=== PATIENT | male | born 1955 | race Caucasian/White ===

== ENCOUNTER 2021-01-07 22:06 | Inpatient (IN) ==
[2021-01-07] MEDS ORDERED: ADENOSINE IV SOLN 3 MG/ML 2 ML VIAL IV ONE (22:22)
[2021-01-07] MEDS ORDERED: METOPROLOL TARTRATE 1 MG/ML VIAL IV ONE (22:26)
[2021-01-07] MEDS ORDERED: SODIUM CHLORIDE 0.9% 1000ML 1,000 ML IV ONE (22:27)
[2021-01-07 22:37] LABS: Basophils # (auto) 0.09 K/uL (0-0.2); Basophils % (auto) 0.5 %; Eosinophils # (auto) 0.26 K/uL (0-0.5); Eosinophils % (auto) 1.4 %; Hematocrit (blood only) 41.4 % (42-52); Hemoglobin 14.7 g/dL (14.0-18.0); Immature Granulocytes # (auto) 0.05 K/uL (0.00-0.02); Immature Granulocytes % (auto) 0.3 %; Lymphocytes # (auto) 4.73 K/uL (1.2-3.4); Lymphocytes % (auto) 24.9 %; Mean Corpuscular Hemoglobin 30.4 pg (25-34); Mean Corpuscular Hgb Conc 35.5 g/dL (32-36); Mean Corpuscular Volume 85.7 fL (80-100); Mean Platelet Volume 9.2 fL (7.4-10.4); Monocytes # (auto) 1.56 K/uL (0.11-0.59); Monocytes % (auto) 8.2 %; Neutrophils # (auto) 12.28 K/uL (1.4-6.5); Neutrophils % (auto) 64.7 %; Platelet Count 515 K/uL (130-400); RDW Coefficient of Variation 12.9 % (11.5-14.5); RDW Standard Deviation 40.8 fL (36.4-46.3); Red Blood Count 4.83 M/uL (4.7-6.1); White Blood Count 18.97 K/uL (4.8-10.8)
--- NOTE | 2021-01-07 22:37 | Emergency Department Note ---
Impression & Plan SOB (shortness of breath), SVT (supraventricular tachycardia), Weakness, Pneumonia, Leukocytosis ED Provider Note NAME: MAME WESTON AGE: 65 SEX: M : 1955 ARRIVES VIA: Walk-In INFORMANT: [Patient] ED PROVIDER(S): [Christian Padilla MD] CHIEF COMPLAINT: Short of breath HISTORY OF PRESENT ILLNESS: The patient is a 65-year-old male presents with about a week and a half of symptoms. He has had an intermittent low-grade fever, some cough, some shortness of breath with exertion. He has had a tightness across his chest. He has not had chest pain. No stuffy nose. No vomiting or diarrhea. The patient has felt quite washed out, especially today. He presents for evaluation. The patient is vaccinated against COVID-19. He had a recent Covid test which turned up negative. REVIEW OF SYSTEMS: See HPI for pertinent positives and negatives. A total of ten systems were reviewed and were otherwise negative. PMHx/PSHx: See Below SOCIAL HISTORY: See Below. PHYSICAL EXAM: GENERAL: Patient is in mild distress. HEENT: No acute trauma, normocephalic atraumatic, mucous membranes moist, no nasal congestion, no scleral icterus. NECK: No stridor, no adenopathy, no meningismus, trachea is midline. LUNGS: Clear to auscultation bilaterally, no wheeze, no rhonchi, breath sounds equal. HEART: Tachycardic, regular rhythm, no murmurs. ABDOMEN: Soft, nontender, bowel sounds positive, no hernias, no peritonitis. EXTREMITIES: No cyanosis or edema, full range of motion of all the joints without pain or difficulty, no signs for acute trauma. NEUROLOGIC: Oriented x 3, no acute motor or sensory deficits, no focal weakness. SKIN: No rash, no jaundice, no diaphoresis. DIFFERENTIAL DIAGNOSIS: Reactive airway disease, pneumonia, pneumothorax, COPD, COVID-19, dysrhythmia, SVT, atrial fibrillation, atrial flutter, anemia, hyperthyroidism, CHF, infection, cardiac ischemia, pulmonary embolism, bronchitis, musculoskeletal, gastrointestinal, as well as other pathologies. EMERGENCY DEPARTMENT COURSE/PROCEDURES: ECG: Indication was tachycardia. The ECG shows what appears to be in SVT with a rate of 218. There is diffuse nonspecific ST change. No ST elevation. No PVCs. The QTc is 388. Repeat EKG: There is a sinus tachycardia with a rate of 116. There is no ST paola vation, no PVCs. The QTc is 444. Compared to the earlier ECG, the SVT is no longer present. Continuous Cardiac Monitoring: An order was placed for continuous cardiac monitoring. The monitor shows a rate of 115 with sinus tachycardia. Critical Care Note: I have personally spent 53 minutes of critical care time in the direct management of this patient. This includes bedside care, interpretation of diagnostic studies, and testing, discussion with consultants, patient, and family members, and other required patient management activities. This 53 minutes is in excess of all separately billable procedures. MEDICAL DECISION MAKING: There is a moderate leukocytosis at 18,000, this would be consistent with infect ion. There is a normal hemoglobin. Platelet count mildly elevated. Potassium somewhat low at 3.3. No kidney failure. Lactic acid level was elevated at over 2, this is consistent with infection and/or dehydration. No concerning liver enzyme elevation. The patient appeared to be in a euthyroid state. ECG showed SVT, no acute ischemic change. Repeat EKG showed a sinus tachycardia. Cardiac enzyme testing x1 is not consistent with acute cardiac injury. Covid test returned negative. Chest film showed some cardiomegaly, I did not see any CHF or pneumonia. Chest CT showed a left-sided pneumonia, there was no PE. The patient presented quite tachycardic. He was aggressively managed. I did attempt some vagal maneuvers. The patient was placed in the head down position. He attempted to blow into a straw. He held his breath and tried to force a cough. These maneuvers did not change his tachycardia. Patient received IV adenosine, 6 mg followed by a rapid flush of saline. This did break the SVT into a sinus tachycardia. The patient did well with this medication. Patient received IV saline, 1.5 L. He was given IV potassium and IV Lopressor. He received IV cefepime as antibiotic coverage. Patient presents with shortness of breath, weakness, cough. He appears to have pneumonia on work-up. He has a leukocytosis. He was in SVT upon his arrival. His lactic acid level is elevated, sepsis is a concern. The patient is in need of a hospital stay. Further testing/care is warranted. I spoke with the patient and case management. The on-call hospitalist was consulted. Past Med/Surg History Medical History GERD (gastroesophageal reflux disease) Social History Smoking Status: Never smoker Feels Safe at Home: Yes Allergies Allergies Allergy/AdvReac Type Severity Reaction Status Date / Time No Known Allergies Unverified 01/08/21 00:37 Home Meds Home Medications Medication Instructions Recorded Confirmed Statin Pill 1 tab PO DAILY 01/08/21 01/08/21 cyanocobalamin (vitamin B-12) 0 mcg PO DAILY 01/08/21 01/08/21 1,000 mcg tablet (Vitamin B-12) omeprazole 20 mg capsule,delayed 20 mg PO BID 01/08/21 01/08/21 release Results & Data (ED) Vital Signs Vital Signs - 24 hr 01/07/21 22:08 01/07/21 22:21 01/07/21 22:29 Temperature 36.1 C L Temperature Source Temporal Artery Scan Pulse Rate 218 H 211 H 115 H Pulse Rate from SpO2 Sensor Respiratory Rate 22 28 H Respiratory Effort / Characteristics Non-Labored Spontaneous Respiratory Depth Normal Respiratory Pattern Regular Blood Pressure 130/85 147/92 H Blood Pressure Mean 100 Pulse Oximetry 95 Oxygen Delivery Method Room Air Sepsis Recent Fever Within 48 Hours No Sepsis New/Unexplained Change in Mental Status No Sepsis Action Taken by Nursing No Action Required 01/07/21 22:30 01/07/21 22:37 01/07/21 22:45 Temperature Temperature Source Pulse Rate 113 H 108 H 107 H Pulse Rate from SpO2 Sensor 113 H Respiratory Rate 23 19 20 Respiratory Effort / Characteristics Respiratory Depth Respiratory Pattern Blood Pressure 125/84 128/77 Blood Pressure Mean 97 94 Pulse Oximetry 94 93 94 Oxygen Delivery Method Room Air Room Air Room Air Sepsis Recent Fever Within 48 Hours Sepsis New/Unexplained Change in Mental Status Sepsis Action Taken by Nursing 01/07/21 23:00 01/08/21 00:00 01/08/21 00:30 Temperature Temperature Source Pulse Rate 107 H 101 H 100 H Pulse Rate from SpO2 Sensor Respiratory Rate 22 16 14 Respiratory Effort / Characteristics Respiratory Depth Respiratory Pattern Blood Pressure 126/75 133/86 128/83 Blood Pressure Mean 92 101 98 Pulse Oximetry 93 94 100 Oxygen Delivery Method Room Air Sepsis Recent Fever Within 48 Hours Sepsis New/Unexplained Change in Mental Status Sepsis Action Taken by Skilled Nursing Medications Current Medication List: was personally reviewed by me Laboratory Data Attestation: I reviewed the patient's lab results. Result diagrams: 01/07/21 22:22 01/07/21 22:22 Lab Results 01/07/21 01/07/21 01/07/21 Range/Units 22:22 22:22 22:42 WBC 18.97 H (4.8-10.8) K/uL RBC 4.83 (4.7-6.1) M/uL Hgb 14.7 (14.0-18.0) g/dL Hct 41.4 L (42-52) % MCV 85.7 (80-100) fL MCH 30.4 (25-34) pg MCHC 35.5 (32-36) g/dL RDW Std Deviation 40.8 (36.4-46.3) fL RDW Coeff of Elizabeth 12.9 (11.5-14.5) % Plt Count 515 H (130-400) K/uL MPV 9.2 (7.4-10.4) fL Immature Gran % (Auto) 0.3 % Neut % (Auto) 64.7 % Lymph % (Auto) 24.9 % [place]pson % (Auto) 8.2 % Eos % (Auto) 1.4 % Baso % (Auto) 0.5 % Neut # (Auto) 12.28 H (1.4-6.5) K/uL Lymph # (Auto) 4.73 H (1.2-3.4) K/uL [place]pson # (Auto) 1.56 H (0.11-0.59) K/uL Eos # (Auto) 0.26 (0-0.5) K/uL Baso # (Auto) 0.09 (0-0.2) K/uL Immature Gran # (Auto) 0.05 H (0.00-0.02) K/uL Sodium 136 (136-145) mmol/L Potassium 3.3 L (3.5-5.1) mmol/L Chloride 98 (98-107) mmol/L Carbon Dioxide 27 (21-32) mmol/L Anion Gap 11.0 (3-11) BUN 16 (7-18) mg/dl Creatinine 1.34 (0.6-1.4) mg/dl Est Cr Clr Drug Dosing 66.4 ml/min Est GFR ( Amer) 64.0 ml/min Est GFR (Non-Af Amer) 55.2 ml/min BUN/Creatinine Ratio 11.6 (10-20) Glucose 112 H (70-99) mg/dl Lactate (0.4-2.0) mmol/L Calcium 9.4 (8.5-10.1) mg/dl Magnesium 2.2 (1.8-2.4) mg/dl Total Bilirubin 0.8 (0.2-1) mg/dl AST 30 (15-37) U/L ALT 41 (12-78) U/L Alkaline Phosphatase 140 H (45-117) U/L Troponin I < 0.015 (0-0.045) ng/ml Total Protein 8.5 H (6.4-8.2) gm/dl Albumin 3.3 L (3.4-5.0) gm/dl Globulin 5.2 H (2.5-4.0) gm/dl Albumin/Globulin Ratio 0.6 L (0.9-2) TSH 4.070 (0.300-4.500) uIu/ml COVID-19 Eval Order Covid19 at [facility] SARS-CoV-2 (PCR) (Negative) 01/07/21 01/07/21 Range/Units 22:42 22:59 WBC (4.8-10.8) K/uL RBC (4.7-6.1) M/uL Hgb (14.0-18.0) g/dL Hct (42-52) % MCV (80-100) fL MCH (25-34) pg MCHC (32-36) g/dL RDW Std Deviation (36.4-46.3) fL RDW Coeff of Elizabeth (11.5-14.5) % Plt Count (130-400) K/uL MPV (7.4-10.4) fL Immature Gran % (Auto) % Neut % (Auto) % Lymph % (Auto) % [place] % (Auto) % Eos % (Auto) % Baso % (Auto) % Neut # (Auto) (1.4-6.5) K/uL Lymph # (Auto) (1.2-3.4) K/uL [place]pson # (Auto) (0.11-0.59) K/uL Eos # (Auto) (0-0.5) K/uL Baso # (Auto) (0-0.2) K/uL Immature Gran # (Auto) (0.00-0.02) K/uL Sodium (136-145) mmol/L Potassium (3.5-5.1) mmol/L Chloride (98-107) mmol/L Carbon Dioxide (21-32) mmol/L Anion Gap (3-11) BUN (7-18) mg/dl Creatinine (0.6-1.4) mg/dl Est Cr Clr Drug Dosing ml/min Est GFR ( Amer) ml/min Est GFR (Non-Af Amer) ml/min BUN/Creatinine Ratio (10-20) Glucose (70-99) mg/dl Lactate 2.1 H* (0.4-2.0) mmol/L Calcium (8.5-10.1) mg/dl Magnesium (1.8-2.4) mg/dl Total Bilirubin (0.2-1) mg/dl AST (15-37) U/L ALT (12-78) U/L Alkaline Phosphatase (45-117) U/L Troponin I (0-0.045) ng/ml Total Protein (6.4-8.2) gm/dl Albumin (3.4-5.0) gm/dl Globulin (2.5-4.0) gm/dl Albumin/Globulin Ratio (0.9-2) TSH (0.300-4.500) uIu/ml COVID-19 Eval Order SARS-CoV-2 (PCR) NEGATIVE (Negative) Administered Medications Potassium Chloride (K Ross / Wtr) 10 meq in 100 mls @ 100 mls/hr IV Q1H ORTEGA Stop: 01/08/21 02:44 Last Admin: 01/08/21 00:49 Dose: 100 mls/hr Documented by: [id number] Discontinued Medications Adenosine (Adenosine Iv Soln 3 Mg/Ml 2 Ml Vial) Confirm Administered Dose 18 mg IV .STK-MED ONE Stop: 01/07/21 22:23 Last Admin: 01/07/21 22:24 Dose: 6 mg Documented by: [id number] Sodium Chloride (Nss 1000ml) 1,000 mls @ 999 mls/hr IV .Q1H1M ONE Stop: 01/07/21 23:27 Last Infusion: 01/07/21 22:45 Dose: 0 mls/hr Documented by: [id number] Admin: 01/07/21 22:33 Dose: 999 mls/hr Documented by: [id number] Potassium Chloride (K Ross / Wtr) 10 meq in 100 mls @ 100 mls/hr IV ONE ONE Stop: 01/08/21 00:09 Last Infusion: 01/08/21 00:34 Dose: 0 mls/hr Documented by: [id number] Admin: 01/07/21 23:34 Dose: 100 mls/hr Documented by: [id number] Sodium Chloride (Nss 1000ml) 500 mls @ 999 mls/hr IV .Q31M ONE Stop: 01/08/21 00:08 Last Infusion: 01/08/21 00:25 Dose: 0 mls/hr Documented by: [id number] Admin: 01/07/21 23:54 Dose: 999 mls/hr Documented by: [id number] Cefepime HCl (Maxipime) 2,000 mg in 20 mls @ 5 mls/min IV NOW STA; Protocol Stop: 01/07/21 23:42 Last Admin: 01/07/21 23:54 Dose: 5 mls/min Documented by: [id number] Ioversol (Optiray 320 125ml) 120 ml IV ONCE ONE Stop: 01/07/21 23:31 Last Admin: 01/07/21 23:27 Dose: 120 ml Documented by: [id number] Metoprolol Tartrate (Metoprolol Tartrate 1 Mg/Ml Vial) Confirm Administered Dose 5 mg IV .STK-MED ONE Stop: 01/07/21 22:27 Last Admin: 01/07/21 22:29 Dose: 5 mg Documented by: [id number] Imaging Data Attestation: I personally reviewed and interpreted this imaging study as follows : My Impression: Chest x-ray: There is no obvious pneumonia, no CHF. Some mild cardiomegaly was seen. Radiologist's Impression: Chest CT for PE: No acute pulmonary embolus. Normal heart size. No pericardial effusion. No aneurysm. Centrilobular nodules throughout the left lung suggesting infectious or inflammatory small airway disease. Small left lung base consolidation, possible pneumonia. No pleural effusion or pneumothorax. Cholelithiasis. Discharge Plan Visit Data Chief Complaint: Shortness of Breath/Dyspnea Stated Complaint: SOB, CHEST TIGHTNESS, CONGESTION ED Provider: Christian Padilla Discharge Problem: SOB (shortness of breath), SVT (supraventricular tachycardia), Weakness, Pneumonia, Leukocytosis Patient Disposition: Admitted As Inpatient Condition: Fair Prescriptions Prescriptions: No Action cyanocobalamin (vitamin B-12) [Vitamin B-12] 1,000 mcg Tablet 0 mcg PO DAILY RF: 0 omeprazole [Prilosec] 20 mg Capsule,Delayed Release(Dr/Ec) 20 mg PO BID RF: 0 Statin Pill 1 tab PO DAILY RF: 0
[2021-01-07 23:08] LABS: Alanine Aminotransferase 41 U/L (12-78); Albumin Level 3.3 gm/dl (3.4-5.0); Aspartate Aminotransferase 30 U/L (15-37); BUN Creatinine Ratio 11.6 (10-20); Blood Urea Nitrogen 16 mg/dl (7-18); Calcium 9.4 mg/dl (8.5-10.1); Carbon Dioxide 27 mmol/L (21-32); Chloride 98 mmol/L (98-107); Creatinine Clr Calc Pharmacy 66.4 ml/min; Est GFR (Non-African American) 55.2 ml/min; Glucose 112 mg/dl (70-99); Magnesium 2.2 mg/dl (1.8-2.4); Potassium 3.3 mmol/L (3.5-5.1); Sodium 136 mmol/L (136-145)
[2021-01-07] MEDS ORDERED: POTASSIUM CHLORIDE / WTR 10 MEQ/100 ML PLCT IV ONE (23:10)
[2021-01-07 23:19] LABS: Albumin Globulin Ratio 0.6 (0.9-2); Alkaline Phosphatase 140 U/L (45-117); Bilirubin,Total 0.8 mg/dl (0.2-1); Globulin 5.2 gm/dl (2.5-4.0); Total Protein 8.5 gm/dl (6.4-8.2); Troponin I < 0.015 ng/ml (0-0.045)
[2021-01-07] MEDS ORDERED: OPTIRAY 320 125ml IV ONE (23:30)
[2021-01-07] MEDS ORDERED: SODIUM CHLORIDE 0.9% 1000ML 500 ML IV ONE (23:38)
[2021-01-07] MEDS ORDERED: CEFEPIME 2,000 MG/20 ML VIAL IV STA (23:39)
--- NOTE | 2021-01-08 00:42 | History & Physical Report ---
Date of Service January 08, 2021 Assessment & Plan (1) SVT (supraventricular tachycardia): Plan: SVT- The patient will be admitted to telemetry for serial cardiac enzymes, serial EKG's, cardiac rhythm monitoring and a 2-D echocardiogram with Dopplers. Resolved with adenosine IV and Lopressor IV Optimize potassium of 3.3 with 10 mEq K riders x3 Optimize fluid status with NSS + KCl 20 mEq at 100 mils per hour Lopressor 5 mg IV every 4 hours as needed heart rate greater than 110 Consult cardiology Treat underlying pneumonia that likely created physiologic stress and helped act as a trigger (2) Pneumonia: Plan: Received cefepime 2 g IV from the ED Ceftriaxone 1 g IV daily Azithromycin 500 mg IV daily Methylprednisolone 20 mg IV every 8 hours Guaifenesin extended release 12 mg p.o. twice daily (3) GERD (gastroesophageal reflux disease): Plan: Continue omeprazole/pantoprazole twice daily (4) Hyperlipidemia: Plan: On unknown statin Place on atorvastatin 10 mg every morning (5) Weakness: Plan: Generalized weakness, fatigue and lack of energy likely associated with pneumonia, possibly precipitated by an initial viral infection Unclear when patient may have had the development of the SVT, as he was unaware of the rapid heart rate when he arrived in the ED (6) Hypokalemia: Plan: Treat as noted above History of Present Illness Chief Complaint: PresentsThe patient the emergency department with complaint of 1-1/2 weeks of generalized fatigue, low-grade fever, shortness of breath, dyspnea on exertion and tightness across his chest. Primary Care Provider: NO PCP The patient is a 65-year-old male with a past medical history of GERD and hyperlipidemia, who presents with symptoms as noted above. He has not had these type of symptoms in the past. Upon arrival in the emergency department, he was found to be in SVT with heart rate at peak of 218. He was given adenosine and Lopressor IV by the ED, with conversion to normal sinus rhythm in the low 100s, blood pressure 120/90. Abnormal laboratories: WBC 18.97, platelets 515, potassium 3.3, creatinine 1.34, lactate 2.1, total protein 8.5 and albumin 3.3. Chest x-ray showed no acute disease CT angiography PE protocol showed no pulmonary embolism. Centrilobular nodules throughout the left lung suggesting infectious or inflammatory small airways disease. Small consolidation left lung base, possibly pneumonia. Patient was given by the ED the following: Normal saline 1 L, and K rider 10 mEq x 1, NSS 500 mL, cefepime 2 g IV Allergies Allergy/AdvReac Type Severity Reaction Status Date / Time No Known Allergies Unverified 01/08/21 00:37 Home Medications Medication Instructions Recorded Confirmed Type Statin Pill 1 tab PO DAILY 01/08/21 01/08/21 History cyanocobalamin (vitamin B-12) 0 mcg PO DAILY 01/08/21 01/08/21 History 1,000 mcg tablet (Vitamin B-12) omeprazole 20 mg capsule,delayed 20 mg PO BID 01/08/21 01/08/21 History release Past Med/Surg History Medical History (Updated 01/08/21 @ 03:05 by Toan Dobbs MD) GERD (gastroesophageal reflux disease) Hyperlipidemia Vitamin B12 deficiency Social History Smoking Status: Never smoker Hx Alcohol Use: No Hx Substance Use: No Preferred Language: Romansh Communication Ability: Effective Roofer Required: No Beliefs That Will Affect Care: None Current Living Situation: Alone Other Information That Helps Us Care for You: No Feels Safe at Home: Yes Safety Concerns: Feels Safe At This Time Assistive Devices: None Review of Systems Review of Systems: The patient denies chest pain, palpitations, cough, lower extremity swelling, sore throat, fevers, chills, sweats, nausea, vomiting, diarrhea , constipation, abdominal pain, pelvic pain, blood in urine or stool, dysuria, urinary frequency or urgency, memory loss, loss of consciousness, rash, abnormal bruising or bleeding, imbalance, focal weakness, numbness or tingling in arms or legs, generalized arthralgias or myalgias, back or neck pain, or night sweats. The review of systems is otherwise negative other than for that already noted above, and at least 10 systems have been reviewed. Physical Exam Physical Exam: The patient is awake, alert and oriented 3, well developed and well nourished, normocephalic and atraumatic, lying in bed and in no acute distress. HEENT--PERRL, EOMI, mucous membranes and oropharynx dry. Neck--supple. No JVD. No bruits. Thyroid normal, trachea midline, no adenopathy. Heart--mildly tachycardic, normal S1 and S2. No murmurs, rubs or gallops. Lungs--clear bilaterally, no respiratory distress, no accessory muscle use. Abdomen--normal bowel sounds and soft. Nontender. Nondistended, no hernias or masses, no organomegaly. Extremities--no cyanosis or clubbing. No edema. Dermatologic--normal skin turgor, normal color, no abnormal lymph nodes, no rash. Neurologic--cranial nerves II through XII grossly intact. Rheumatologic--normal range of motion. Psychiatric--normal affect. Results & Data Results & Data ([facility]) Vital Signs (Past 12 Hours) Vital Signs Temp Pulse Resp BP Pulse Ox 01/08/21 00:00 101 H 16 133/86 94 01/07/21 23:00 107 H 22 126/75 93 01/07/21 22:45 107 H 20 128/77 94 01/07/21 22:37 108 H 19 93 01/07/21 22:30 113 H 23 125/84 94 01/07/21 22:29 115 H 147/92 H 01/07/21 22:21 211 H 28 H 01/07/21 22:08 97.0 F L 218 H 22 130/85 95 Laboratory Results Laboratory Results WBC 18.97 K/uL (4.8-10.8) H 01/07/21 22: RBC 4.83 M/uL (4.7-6.1) 01/07/21 22: Hgb 14.7 g/dL (14.0-18.0) 01/07/21: Hct 41.4 % (42-52) L 01/07/21: MCV 85.7 fL (80-100) 01/07/21 22: MCH 30.4 pg (25-34) 01/07/21: MCHC 35.5 g/dL (32-36) 01/07/21: RDW Std Deviation 40.8 fL (36.4-46.3) 01/07/21: RDW Coeff of Elizabeth 12.9 % (11.5-14.5) 01/07/21: Plt Count 515 K/uL (130-400) H 01/07/21: MPV 9.2 fL (7.4-10.4) 01/07/21 22: Immature Gran % (Auto) 0.3 % 01/07/21 22: Neut % (Auto) 64.7 % 01/07/21: Lymph % (Auto) 24.9 % 01/07/21: [place] % (Auto) 8.2 % 01/07/21: Eos % (Auto) 1.4 % 01/07/21: Baso % (Auto) 0.5 % 01/07/21: Neut # (Auto) 12.28 K/uL (1.4-6.5) H 01/07/21: Lymph # (Auto) 4.73 K/uL (1.2-3.4) H 01/07/21 22: [place] # (Auto) 1.56 K/uL (0.11-0.59) H 01/07/21 22: Eos # (Auto) 0.26 K/uL (0-0.5) 01/07/21: Baso # (Auto) 0.09 K/uL (0-0.2) 01/07/21: Immature Gran # (Auto) 0.05 K/uL (0.00-0.02) H 01/07/21 22: Sodium 136 mmol/L (136-145) 01/07/21 22: Potassium 3.3 mmol/L (3.5-5.1) L 01/07/21: Chloride 98 mmol/L (98-107) 01/07/21: Carbon Dioxide 27 mmol/L (21-32) 01/07/21 22: Anion Gap 11.0 (3-11) 01/07/21: BUN 16 mg/dl (7-18) 01/07/21: Creatinine 1.34 mg/dl (0.6-1.4) 01/07/21: Est Cr Clr Drug Dosing 66.4 ml/min 01/07/21 22: Est GFR ( Amer) 64.0 ml/min 01/07/21 22: Est GFR (Non-Af Amer) 55.2 ml/min 10/22/21 22:22 BUN/Creatinine Ratio 11.6 (10-20) 01/07/21 22:22 Glucose 112 mg/dl (70-99) H 01/07/21 22:22 Lactate 0.9 mmol/L (0.4-2.0) 01/08/21 01:16 Calcium 9.4 mg/dl (8.5-10.1) 01/07/21 22:22 Magnesium 2.2 mg/dl (1.8-2.4) 01/07/21 22:22 Total Bilirubin 0.8 mg/dl (0.2-1) 01/07/21 22:22 AST 30 U/L (15-37) 01/07/21 22:22 ALT 41 U/L (12-78) 01/07/21 22:22 Alkaline Phosphatase 140 U/L (45-117) H 01/07/21 22:22 Troponin I < 0.015 ng/ml (0-0.045) 01/07/21 22:22 Total Protein 8.5 gm/dl (6.4-8.2) H 01/07/21 22:22 Albumin 3.3 gm/dl (3.4-5.0) L 01/07/21 22:22 Globulin 5.2 gm/dl (2.5-4.0) H 01/07/21 22:22 Albumin/Globulin Ratio 0.6 (0.9-2) L 01/07/21 22:22 TSH 4.070 uIu/ml (0.300-4.500) 01/07/21 22:22 COVID-19 Eval Order Covid19 at [facility] 01/07/21 22:42 SARS-CoV-2 (PCR) NEGATIVE (Negative) 01/07/21 22:42 Diagnostic Findings [facility] Patient: MAME WESTON (Male) : 55 Status: ER Date: 01/07/21 23:35 Room #: History: SOB , CHEST TIGHTNESS , EVAL FOR PE, 120 ML OPTIRAY 320 Slices: [phone] Priors: Tech: McGonigal, Andrez @ [id number] Exams: CTA CHEST Contrast: IV Amt: 120 ML Accession Numbers: [id number] Referring Physician: REFERRED SELF Preliminary Findings Only See Final Report For Complete Findings CTA CHEST: Limited by motion artifact. No acute pulmonary embolism as visualized. Suboptimal characterization of the distal pulmonary artery branch vessels. Normal heart size. No right ventricular strain. Coronary artery atherosclerosis. No pericardial effusion. No thoracic aortic aneurysm or dissection. Centrilobular nodules throughout the left lung suggesting infectious or inflammatory small airways disease. Small consolidation left lung base, possibly pneumonia. No pleural effusion or pneumothorax. Cholelithiasis. No acute osseous findings. Radiologist: Patience Chung M.D. Study ready at 23:38 and initial results transmitted at 23:42 *This report constitutes a preliminary interpretation only. Non-acute findings felt to be unrelated to the clinical presentation may not be discussed in this report. The study will be interpreted and a final report will be generated by the local Radiologist the following shift. To reach the hospital radiology department call [phone]. If a discrepancy is found between the preliminary and final interpretations of this study, please notify us via our Client Portal at [email or web address].You can also fax this report with a description of the discrepancy, or include the final report, to our daytime fax number [phone].If faxing, please indicate the severity of discrepancy using one of the following categories: [ ] 1 - Agree/Informational [ ] 2 - Unlikely to Affect Management [ ] 3 - Possible Eventual Change of Management [ ] 4 - Probable Immediate Change of Management For all other patient related information, please fax us at [phone]. [id number] Code Status & VTE Plan Code Status Full code VTE Prophylaxis Plan VTE Prophylaxis will be ordered: Yes PG Care Time/CCT Total # of Minutes Spent Total Time Spent with Patient: Total time spent is greater than 50% in coordination of care (as documented) at patient's floor/unit and/or counseling patient: Coding Level of Care Code 74783 Initial Inpt Care Lvl 3 Diagnoses SVT (supraventricular tachycardia) I47.1 Pneumonia J18.9 Laterality: left Lung location: unspecified part of lung Pneumonia type: due to unspecified organism GERD (gastroesophageal reflux disease) K21.9 Hyperlipidemia E78.5 Weakness R53.1 Hypokalemia E87.6 (1) Pneumonia Laterality: left Lung location: unspecified part of lung Pneumonia type: due to unspecified organism Qualified Code(s): J18.9 - Pneumonia, unspecified organism
[2021-01-08] MEDS: POTASSIUM CHLORIDE / WTR 10 MEQ/100 ML PLCT IV SCH ×2 (00:49→02:08)
[2021-01-08] MEDS ORDERED: ONDANSETRON INJ 2 MG/ML 2 ML VIAL IV PRN (02:03)
[2021-01-08] MEDS ORDERED: NITROGLYCERIN SL 0.4 MG/TAB TAB SL PRN (02:03)
[2021-01-08] MEDS ORDERED: ACETAMINOPHEN 325 MG TAB PO PRN (02:03)
[2021-01-08] MEDS ORDERED: NSS + 20MEQ KCL 20 MEQ/1,000 ML BAG IV SCH (02:15)
[2021-01-08] MEDS ORDERED: METOPROLOL TARTRATE 1 MG/ML VIAL IV PRN (02:55)
[2021-01-08] MEDS ORDERED: methylPREDNISolone 40 MG in SYRINGE 0 ML IV SCH (04:00)
[2021-01-08] MEDS: cefTRIAXone SODIUM 2,000 MG in DEXTROSE 5% 50 ML IV SCH (04:51)
[2021-01-08] MEDS: AZITHROMYCIN 500 MG in DEXTROSE 5% 250 ML IV SCH (05:44)
[2021-01-08 05:49] LABS: Basophils # (auto) 0.06 K/uL (0-0.2); Basophils % (auto) 0.6 %; Eosinophils # (auto) 0.05 K/uL (0-0.5); Eosinophils % (auto) 0.5 %; Hematocrit (blood only) 35.3 % (42-52); Hemoglobin 12.3 g/dL (14.0-18.0); Immature Granulocytes # (auto) 0.02 K/uL (0.00-0.02); Immature Granulocytes % (auto) 0.2 %; Lymphocytes # (auto) 2.79 K/uL (1.2-3.4); Lymphocytes % (auto) 28.6 %; Mean Corpuscular Hemoglobin 29.9 pg (25-34); Mean Corpuscular Hgb Conc 34.8 g/dL (32-36); Mean Corpuscular Volume 85.9 fL (80-100); Mean Platelet Volume 8.8 fL (7.4-10.4); Monocytes # (auto) 0.93 K/uL (0.11-0.59); Monocytes % (auto) 9.5 %; Neutrophils # (auto) 5.89 K/uL (1.4-6.5); Neutrophils % (auto) 60.6 %; Platelet Count 327 K/uL (130-400); RDW Standard Deviation 41.1 fL (36.4-46.3); Red Blood Count 4.11 M/uL (4.7-6.1); White Blood Count 9.74 K/uL (4.8-10.8)
[2021-01-08 06:10] LABS: Albumin Level 2.5 gm/dl (3.4-5.0); BUN Creatinine Ratio 14.7 (10-20); Calcium 8.4 mg/dl (8.5-10.1); Creatinine Clr Calc Pharmacy 95.7 ml/min; Est GFR (African American) 99.5 ml/min; Est GFR (Non-African American) 85.8 ml/min; Magnesium 2.2 mg/dl (1.8-2.4); Potassium 4.2 mmol/L (3.5-5.1)
[2021-01-08 06:19] LABS: Albumin Globulin Ratio 0.6 (0.9-2); Bilirubin,Total 0.6 mg/dl (0.2-1); Globulin 4.3 gm/dl (2.5-4.0); Total Protein 6.8 gm/dl (6.4-8.2); Troponin I 0.129 ng/ml (0-0.045)
[2021-01-08] MEDS ORDERED: PERFLUTREN LIPID MICROSPHERE (DEFINITY) IV ONE (07:01)
[2021-01-08] MEDS: ATORVASTATIN 10 MG TAB PO SCH (08:25)
[2021-01-08] MEDS: ASPIRIN 81 MG ECTAB PO SCH (08:25)
[2021-01-08] MEDS: HEPARIN SOD 5,000 UNIT/0.5 ML VIAL SQ SCH ×2 (08:25→21:14)
[2021-01-08] MEDS: guaiFENesin 600 MG TABCR PO SCH ×2 (08:25→21:14)
--- NOTE | 2021-01-08 08:32 | CT Scan Report ---
CT ANGIOGRAPHY OF THE CHEST, PULMONARY EMBOLUS PROTOCOL CLINICAL HISTORY: Shortness of breath. Chest tightness. Evaluate for pulmonary embolus. COMPARISON STUDY: Chest radiograph January 07, 2021. TECHNIQUE: Following IV administration of 120 mL of Optiray, helical axial images of the chest were o btained utilizing the pulmonary embolus protocol. Maximal intensity projections and sagittal and cor onal reformats were viewed on an independent 3D workstation. IV contrast was administered without co mplication. Automated exposure control was utilized for the study. A dose lowering technique was ut ilized adhering to the principles of ALARA. CT DOSE: 684.32 mGy.cm FINDINGS: No pulmonary emboli are identified although segmental and subsegmental pulmonary arteries are suboptimally assessed due to respiratory motion. No pericardial effusion is present. There is mod erate coronary artery calcification. No thoracic aortic dissection is present. Extensive tree-in-bud nodules within the left lung are noted. A few nodular left basilar airspace opacities measure up to 2 .6 cm. Bronchial wall thickening is present. No pneumothorax or pleural effusion is present. Lungs ar e suboptimally assessed due to respiratory motion. There are gallstones within the gallbladder. IMPRESSION: 1. No pulmonary emboli identified although exam significantly compromised by respiratory motion. If p ersistent suspicion for pulmonary embolus, repeat PE protocol CT is recommended. 2. Extensive left lung tree-in-bud nodules suggestive of an infectious process such as bronchiolitis. Nodular left basilar opacities favor pneumonia. Follow-up chest CT in 3 months to ensure resolution is recommended. 3. Moderate coronary artery calcification. 4. Cholelithiasis. ACT 112: Negative or not required by law. Electronically signed by: Cristóbal Ragsdale M.D. 01/08/2021 8:31 AM
--- NOTE | 2021-01-08 08:45 | XRay Report ---
XR chest 1V portable CLINICAL HISTORY: weakness COMPARISON STUDY: No previous studies for comparison. FINDINGS: Lung volumes are normal. Mild interstitial thickening within the left lung is noted with mi ld left basilar. There is no pneumothorax or pleural effusion. Cardiac size is normal. Mediastinal co ntours are normal. There is no evidence for pulmonary edema. IMPRESSION: Mild left basilar opacity with asymmetric left lung interstitial thickening. This favors an infectious process. ACT 112: Negative or not required by law. Electronically signed by: Cristóbal Ragsdale M.D. 01/08/2021 8:44 AM
[2021-01-08] MEDS ORDERED: PNEUMOCOCCAL POLYSACCHARIDES 25 MCG/0.5 ML VIAL/SYR IM ONE (10:00)
--- NOTE | 2021-01-08 12:08 | XCELERA ---
[id number] \\[id number]
--- NOTE | 2021-01-08 13:28 | Cardiology Consultation ---
Date of Consultation January 08, 2021 Assessment & Plan (1) SVT (supraventricular tachycardia): -likely secondary to his acute pneumonia and hypokalemia. -continue to monitor on telemetry. -may deserve some type of monitoring as an outpatient. -will ask an opinion from one of our electrophysiologists. (2) Elevated troponin: -likely a supply/demand mismatch. -has borderline LVH on his echocardiogram. -continue to trend enzymes. (3) Pneumonia: -may have been a contributing factor to his presenting SVT. History of Present Illness Attending Physician: Stacy Gooden MD History of Present Illness Mr. Sr is a 65-year-old male admitted yesterday with pneumonia and SVT. This consultation was ordered to assist in his management. The patient's recent history began approximately 1-1/2 weeks prior to presentation when he began to note significant fatigue, exertional dyspnea, and low-grade fever. The patient noticed occasions where his heart rate was elevated for approximately 15-30 minutes. He has never experienced a sensation prior to the time frame described. He has never been diagnosed with a supraventricular tachycardia. In any event, he presented to the emergency room and was in a SVT with a rapid ventricular response. He was given intravenous adenosine and metoprolol and his tachycardia broke. Laboratory evaluation noted hypokalemia with a potassium level of 3.3. Currently, patient is resting comfortably in bed without complaints. Past medical and surgical history 1. Hypercholesterolemia 2. Paroxysmal SVT-December 2020 3. GERD 4. De Leon's esophagus 5. Cholelithiasis 6. Vitamin B12 deficiency 7. Right ACL repair- Social history Single, lives alone Works as a delivery specialist. No tobacco Rare alcohol Family history Father is 94 and in a personal assisted Mother at 91 from old age. Review of systems A 10 review systems was undertaken and negative except that described above. Allergies Allergy/AdvReac Type Severity Reaction Status Date / Time No Known Allergies Unverified 01/08/21 00:37 Home Medications Medication Instructions Recorded Confirmed Type Statin Pill 1 tab PO DAILY 01/08/21 01/08/21 History cyanocobalamin (vitamin B-12) 0 mcg PO DAILY 01/08/21 01/08/21 History 1,000 mcg tablet (Vitamin B-12) omeprazole 20 mg capsule,delayed 20 mg PO BID 01/08/21 01/08/21 History release Patient History Medical History (Updated 01/08/21 @ 13:28 by Jens De La Torre MD) GERD (gastroesophageal reflux disease) Hyperlipidemia Vitamin B12 deficiency Social History Smoking Status: Never smoker Hx Alcohol Use: No Hx Substance Use: No Preferred Language: Georgian Communication Ability: Effective Jar Filler Required: No Beliefs That Will Affect Care: None Current Living Situation: Alone Other Information That Helps Us Care for You: No Feels Safe at Home: Yes Safety Concerns: Feels Safe At This Time Assistive Devices: None Physical Exam Physical Exam: In general is well-developed well-nourished white male no acute distress. HEENT exam is negative. Neck is supple with full carotid upstrokes. There are no carotid bruits. Jugular is pressure is flat at 90. There is no thyromegaly. Cardiovascular exam reveals a regular rhythm with normal S1-S2. No S3, S4, or murmurs are noted. Lungs note coarse breath sounds on the left. Right side is clear. Abdomen is soft without bruits. Extremities reveal intact radial artery pulses bilaterally. There is no peripheral edema. Results & Data ([facility]) Vital Signs (Past 12 Hours) Vital Signs Temp Pulse Pulse Resp BP BP Pulse Ox 01/08/21 11:46 36.6 C 81 19 114/67 91 01/08/21 07:18 87 01/08/21 07:02 37.1 C 83 20 111/72 93 01/08/21 04:00 36.8 C 88 15 118/79 94 01/08/21 02:32 36.8 C 96 H 16 134/80 94 01/08/21 01:30 93 H 16 126/84 99 Laboratory Results CBC notes hemoglobin 12.3, crit 35.3, white count 9.7, platelet count 327 1000. Electrolytes note a sodium of 138, potassium 4.2, chloride 106, bicarb 26, BUN 14, creatinine 0.93, glucose of 105. Initial troponin was undetectable less than 0.015 with a follow-up value of 0.129. Diagnostic Findings Initial EKG noted SVT. Follow-up noted sinus tachycardia with a right-sided conduction delay. Tracing this morning notes sinus rhythm with a right-sided conduction delay. Chest x-ray shows no acute disease. Echocardiogram notes normal left ventricular systolic function with ejection fraction of 60-65%. There is borderline LVH and mild tricuspid regurgitation. CT scan of chest notes no pulmonary embolism but tree in bud nodules in the left lung consistent with an infection. PG Care Time/CCT Total # of Minutes Spent Total Time Spent with Patient: Total time spent is greater than 50% in coordination of care (as documented) at patient's floor/unit and/or counseling patient: Coding Level of Care Code 48501 Initial Inpt Care Lvl 3 Diagnoses SVT (supraventricular tachycardia) I47.1 Elevated troponin R77.8 Pneumonia J18.9 Laterality: left Lung location: unspecified part of lung Pneumonia type: due to unspecified organism (1) Pneumonia Laterality: left Lung location: unspecified part of lung Pneumonia type: due to unspecified organism Qualified Code(s): J18.9 - Pneumonia, unspecified organism
--- NOTE | 2021-01-08 14:07 | Electrocardiogram Report ---
Test Reason : Blood Pressure : / mmHG Vent. Rate : 218 BPM Atrial Rate : 220 BPM P-R Int : 000 ms QRS Dur : 108 ms QT Int : 204 ms P-R-T Axes : 000 057 032 degrees QTc Int : 388 ms Supraventricular tachycardia Incomplete right bundle branch block Junctional ST depression, probably normal Borderline ECG No previous ECGs available Confirmed by Jens De La Torre ([id number]) on 01/08/2021 2:07:17 PM Referred By: REFERRED SELF Confirmed By:Jens De La Torre
--- NOTE | 2021-01-08 14:08 | Electrocardiogram Report ---
Test Reason : Blood Pressure : / mmHG Vent. Rate : 116 BPM Atrial Rate : 116 BPM P-R Int : 174 ms QRS Dur : 094 ms QT Int : 320 ms P-R-T Axes : 048 048 039 degrees QTc Int : 444 ms Poor data quality, interpretation may be adversely affected Sinus tachycardia RSR' or QR pattern in V1 suggests right ventricular conduction delay Otherwise normal ECG When compared with ECG of 07-JAN-2021 22:09, (unconfirmed) Vent. rate has decreased BY [address] no longer depressed in Lateral leads Confirmed by Jens De La Torre ([id number]) on 01/08/2021 2:07:46 PM Referred By: REFERRED SELF Confirmed By:Jens De La Torre
--- NOTE | 2021-01-08 14:12 | Electrocardiogram Report ---
Test Reason : Blood Pressure : / mmHG Vent. Rate : 083 BPM Atrial Rate : 083 BPM P-R Int : 170 ms QRS Dur : 076 ms QT Int : 396 ms P-R-T Axes : 059 047 032 degrees QTc Int : 465 ms Normal sinus rhythm Normal ECG When compared with ECG of 07-JAN-2021 22:30, (unconfirmed) No significant change was found Confirmed by Jens De La Torre ([id number]) on 01/08/2021 2:11:40 PM Referred By: REFERRED SELF Confirmed By:Jens De La Torre
[2021-01-08] MEDS ORDERED: LEVALBUTEROL HCL 0.63 MG/3 ML NEB NEB STA (19:01)
[2021-01-08] MEDS ORDERED: guaiFENesin/DEXTROM SYRUP 100MG/10MG 5ML UDC PO PRN (19:01)
--- NOTE | 2021-01-08 19:02 | History & Physical Bridge Note ---
Date of Service January 08, 2021 History & Physical Bridge Note I have examined the patient, reviewed the History & Physical and in the interval since the performance of the History & Physical I have noted the following changes of clinical significance: Pt feeling much better than upon admission. No CP, no SOB, mild cough. No diarrhea. Is eating. Is making urine. Vitals reviewed AAOx3, NAD RRR no mgr +crackles at left lower and middle lung nails, + exp wheezes bilaterally Abd +BS soft NT ND Ext no edema SKin no rashes 65 yo male here with PNA, sepsis, and SVT, myocardial demand ischemia Improving dc steroids as no underlying lung issues and may precipitate further SVT from stress continue Cefepime -add Levalbuterol prn add
[2021-01-08] MEDS: PANTOprazole 40 MG TAB PO SCH (21:15)
[2021-01-08 22:54] LABS: Appearance Urine Clear (Clear); Bilirubin Urine Negative (Negative); Blood Urine Negative (Negative); Color Urine Yellow; Glucose Urine UA Negative (Negative); Ketones Urine Negative (Negative); Leukocyte Esterase Urine Negative (Negative); Nitrite Urine Negative (Negative); Protein Urine Negative (Negative); Specific Gravity Urine 1.022 (1.000-1.030); Urobilinogen Urine Negative (Negative); pH Urine 5.5 (4.5-7.5)
[2021-01-09] MEDS: cefTRIAXone SODIUM 2,000 MG in DEXTROSE 5% 50 ML IV SCH (05:04)
[2021-01-09] MEDS: AZITHROMYCIN 500 MG in DEXTROSE 5% 250 ML IV SCH (05:38)
[2021-01-09 07:09] LABS: Basophils # (auto) 0.06 K/uL (0-0.2); Basophils % (auto) 0.6 %; Eosinophils # (auto) 0.11 K/uL (0-0.5); Hematocrit (blood only) 35.5 % (42-52); Hemoglobin 12.1 g/dL (14.0-18.0); Immature Granulocytes # (auto) 0.02 K/uL (0.00-0.02); Immature Granulocytes % (auto) 0.2 %; Lymphocytes # (auto) 3.24 K/uL (1.2-3.4); Lymphocytes % (auto) 29.9 %; Mean Corpuscular Hgb Conc 34.1 g/dL (32-36); Mean Corpuscular Volume 87.9 fL (80-100); Mean Platelet Volume 9.1 fL (7.4-10.4); Monocytes % (auto) 9.2 %; Neutrophils % (auto) 59.1 %; Platelet Count 346 K/uL (130-400); RDW Standard Deviation 42.1 fL (36.4-46.3); Red Blood Count 4.04 M/uL (4.7-6.1); White Blood Count 10.83 K/uL (4.8-10.8)
[2021-01-09 07:41] LABS: Albumin Level 2.5 gm/dl (3.4-5.0); BUN Creatinine Ratio 18.6 (10-20); Calcium 8.6 mg/dl (8.5-10.1); Creatinine Clr Calc Pharmacy 93.6 ml/min; Est GFR (Non-African American) 83.7 ml/min; Magnesium 2.3 mg/dl (1.8-2.4); Potassium 3.6 mmol/L (3.5-5.1)
[2021-01-09 07:44] LABS: Albumin Globulin Ratio 0.6 (0.9-2); Bilirubin,Total 0.5 mg/dl (0.2-1); Globulin 4.4 gm/dl (2.5-4.0); Total Protein 6.9 gm/dl (6.4-8.2)
[2021-01-09] MEDS: HEPARIN SOD 5,000 UNIT/0.5 ML VIAL SQ SCH (07:48)
[2021-01-09] MEDS: PANTOprazole 40 MG TAB PO SCH (07:48)
[2021-01-09] MEDS: ASPIRIN 81 MG ECTAB PO SCH (07:48)
[2021-01-09] MEDS: guaiFENesin 600 MG TABCR PO SCH (07:48)
[2021-01-09] MEDS: ATORVASTATIN 10 MG TAB PO SCH (07:48)
[2021-01-09] MEDS ORDERED: CYANOCOBALAMIN 500 MCG TABLET (VITAMIN B-12) PO SCH (09:00)
--- NOTE | 2021-01-09 16:12 | Discharge Summary ---
Date of Service January 09, 2021 Admission HPI Per Admitting Provider The patient is a 65-year-old male with a past medical history of GERD and hyperlipidemia, who presents with symptoms as noted above. He has not had these type of symptoms in the past. Upon arrival in the emergency department, he was found to be in SVT with heart rate at peak of 218. He was given adenosine and Lopressor IV by the ED, with conversion to normal sinus rhythm in the low 100s, blood pressure 120/90. Abnormal laboratories: WBC 18.97, platelets 515, potassium 3.3, creatinine 1.34, lactate 2.1, total protein 8.5 and albumin 3.3. Chest x-ray showed no acute disease CT angiography PE protocol showed no pulmonary embolism. Centrilobular nodules throughout the left lung suggesting infectious or inflammatory small airways disease. Small consolidation left lung base, possibly pneumonia. 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 Resolved with adenosine IV and Lopressor IV Optimize potassium of 3.3 with 10 mEq K riders x3 Optimize fluid status with NSS + KCl 20 mEq at 100 mils per hour Lopressor 5 mg IV every 4 hours as needed heart rate greater than 110 Consult cardiology Treat underlying pneumonia that likely created physiologic stress and helped act as a trigger (2) Pneumonia: Received cefepime 2 g IV from the ED Ceftriaxone 1 g IV daily Azithromycin 500 mg IV daily Methylprednisolone 20 mg IV every 8 hours Guaifenesin extended release 12 mg p.o. twice daily (3) GERD (gastroesophageal reflux disease): Continue omeprazole/pantoprazole twice daily (4) Hyperlipidemia: On unknown statin Place on atorvastatin 10 mg every morning (5) Weakness: Generalized weakness, fatigue and lack of energy likely associated with pneumonia, possibly precipitated by an initial viral infection Unclear when patient may have had the development of the SVT, as he was unaware of the rapid heart rate when he arrived in the ED (6) Hypokalemia: Treat as noted above Discharge Plan Discharge Items Patient Disposition: Home - Self-Care Reason For Visit: SVT, PNA, HYPOKALEMIA Discharge Diagnosis: Pneumonia, Supraventricular tachycardia (SVT) Condition on Discharge: Good Activity: As commented below Lifting: Gradually increase as tolerated Bathing: No limitations Exercise/Sports: Gradually increase as tolerated Driving/Machine Use: No limitations Non-emergency contact: Primary Care Provider Call non-emergency contact if: you have any medication questions, your symptoms worsen, you have a fever and your temperature is above 101 Follow-up/Referrals: PCP,NO [Primary Care Provider] - (Please call to schedule a hospital follow up appointment with your PCP within 1-2 weeks.) Diet: Regular Addtl Attending Provider Instructions: You were admitted to the hospital with pneumonia and SVT (rapid heart rhythm). The SVT was treated with medication and resolved. You were given antibiotics for the pneumonia and will need to finish out the courses of these at home with 3 more days of azithromycin, and 5 more days of cefdinir. You can use the albuterol inhaler as needed for cough. You should have a repeat chest CT in 2-3 months to ensure the nodules and pneumonia have resolved. The Manager Intensive Care Unit will arrange for you to have a cardiac event monitor after discharge to look for further episodes of SVT. Pending Studies at Discharge: Yes (Final blood and sputum cultures) Stand-Alone Forms: My [facility] Medications and DC Order Prescriptions: New cefdinir 300 mg capsule 300 mg PO BID 5 Days Qty: 10 RF: 0 azithromycin 250 mg tablet 250 mg PO DAILY Qty: 3 RF: 0 albuterol sulfate 90 mcg/actuation HFA aerosol inhaler 2 inh inhalation Q6 PRN (Reason: cough or wheeze) Qty: 8.5 RF: 0 Continued cyanocobalamin (vitamin B-12) [Vitamin B-12] 1,000 mcg Tablet 0 mcg PO DAILY RF: 0 omeprazole [Prilosec] 20 mg Capsule,Delayed Release(Dr/Ec) 20 mg PO BID RF: 0 Statin Pill 1 tab PO DAILY RF: 0 Discharge Orders: Discharge Order (Routine); Ordered 01/09/21 Ordered By: Stacy Gooden Admission Data Admit Date/Time: 01/08/21 00:42 Attending Provider: Stacy Gooden Admit Provider: Toan Dobbs Primary Care Provider: PCP,NO Other Providers: Toan Dobbs ; Earl Carvalho Coding Diagnoses SVT (supraventricular tachycardia) I47.1 Pneumonia J18.9 Laterality: left Lung location: unspecified part of lung Pneumonia type: due to unspecified organism GERD (gastroesophageal reflux disease) K21.9 Hyperlipidemia E78.5 Weakness R53.1 Hypokalemia E87.6
--- NOTE | 2021-01-10 06:01 | Electrocardiogram Report ---
Test Reason : Blood Pressure : / mmHG Vent. Rate : 084 BPM Atrial Rate : 084 BPM P-R Int : 174 ms QRS Dur : 110 ms QT Int : 402 ms P-R-T Axes : 227 127 147 degrees QTc Int : 475 ms Sinus rhythm Incomplete right bundle branch block Suspect limb lead reversal Abnormal ECG When compared with ECG of 08-JAN-2021 06:35, Limb lead reversal is now present Confirmed by Jn Lowe ([id number]) on 01/10/2021 6:00:50 AM Referred By: REFERRED SELF Confirmed By:Jn Lowe
--- NOTE | 2021-01-11 04:38 | Electrocardiogram Report ---
Test Reason : Blood Pressure : / mmHG Vent. Rate : 088 BPM Atrial Rate : 088 BPM P-R Int : 166 ms QRS Dur : 110 ms QT Int : 392 ms P-R-T Axes : 005 025 012 degrees QTc Int : 474 ms Normal sinus rhythm Incomplete right bundle branch block Borderline ECG When compared with ECG of 09-JAN-2021 06:03, Limb lead reversal is no longer present Confirmed by Jn Lowe ([id number]) on 01/11/2021 4:38:24 AM Referred By: REFERRED SELF Confirmed By:Jn Lowe
== END 2021-01-09 17:38 | disposition home or self-care (01) | DRG 308 ==
LOC: ED 22:06 → SUATTDRO 01-08 00:42 → EDINP 01-08 00:42 → 2S 01-08 01:54